=== PATIENT | male | born 1995 | race Caucasian/White ===

== ENCOUNTER 2020-11-20 01:27 | Emergency (ER) | payer SELFPAY ==
[2020-11-20 02:33] LABS: HEMOGLOBIN 15.6 gm/dl (14.0-17.5); RED BLOOD COUNT 5.35 M/UL (4.20-5.50); WHITE BLOOD COUNT 7.9 K/UL (4.5-11.0)
[2020-11-20 03:16] LABS: BUN/CREATININE RATIO 16 (0-10)
[2020-11-20] MEDS ORDERED: ZOFRAN ODT 4 MG4 MG GT (04:46)
== END 2020-11-20 05:00 | disposition home or self-care (01) ==
LOC: ER1 01:27
PROVIDERS: Family Medicine
DX: R07.9 Chest pain, unspecified (principal); R11.2 Nausea with vomiting, unspecified; F17.290 Nicotine dependence, other tobacco product, uncomplicated
CPT/HCPCS: 80053; 81001; 82550; 82553; 83690; 84484; 85025; 93005; 96374; 99285; J2405; J7030